=== PATIENT | female | born 1965 | race American Indian/Alaskan Native ===

== ENCOUNTER → 2016-06-27 | Day surgery (SDC) | payer BC ==
[~2016-06-27] MED LIST: ADDERALL PO; AMBIEN10 MG PO; AMITRIPTYLINE H50 MG PO; BENZONATATE PO; CYMBALTA PO; DICLOFENAC PO; DITROPAN-XL5 M1 PO; DITROPAN5 MG; FLEXERIL PO; FLEXERIL10 M1 PO; FLEXERIL10 MG PO; HYDROCODON-ACE1 EAC1 PO; IBUPROFEN100 MG PO; IBUPROFEN600 MG PO; LAMICTAL150 MG DOB; LAMOTRIGINE200 MG PO; LEXAPRO PO; LEXAPRO20 MG PO; MEDROL DOSEPAK4 MG PO; PHENERGAN25 MG PO; PREDNISONE; PREDNISONE PO; TOPAMAX200 MG; TOPAMAX200 MG PO; TYLENOL #3 PO; VIBRAMYCIN100 M1 PO; VICODIN 5/1 TAB 5/50 PO; VIMOVO DR 500-1 EACH PO; VOLTAREN75 MG PO; WELLBUTRIN SR150 MG PO; WELLBUTRIN XL PO
--- NOTE | ~2016-06-27 | OR ---
Unit #: [id number] #: [id number] Patient: HARI FARMER [id number] [address] [address] [id number] MR#: [id number] NAME: HARI FARMER. ROOM: Date of Procedure: 06/27/2016 Admission Date: 06/27/2016 Surgeon: Dilshad Livingston M.D. : 1965 Attending Physician: Dilshad Livingston M.D. Primary Care Physician: Generic Doctor Not In System OPERATIVE REPORT JOB NOTE: CC: [facility] PREOPERATIVE DIAGNOSES 1. Back pain. 2. Radiculopathy. 3. Spondylolisthesis. 4. Degenerative disk disease. POSTOPERATIVE DIAGNOSES 1. Back pain. 2. Radiculopathy. 3. Spondylolisthesis. 4. Degenerative disk disease. PROCEDURE PERFORMED Lumbar epidural steroid injection with fluoroscopic guidance for needle localization. INDICATIONS FOR PROCEDURE The patient is a 51-year-old female with back and intermittent left greater than right lower extremity pain due to grade 2 mobile spondylolisthesis at the L5-S1 level, also some broad-based bulging with nerve root compromise at L5 bilaterally, bulging degenerative change at L4-L5. The patient's seen in surgeon likely trial of conservative treatments, so plan is for trial of epidural steroid injections. DESCRIPTION OF PROCEDURE The patient was placed in a seated position. Standard monitors were applied. Sterile prep and drape then of lumbar area was performed. The skin then at the L5-S1 level was localized with 1% lidocaine. An 18-gauge Hust[employer] needle was then advanced via loss of resistance technique and fluoroscopic guidance in toward the epidural space. The patient did not complain of pain or paresthesia during needle advancement. After confirming proper positioning with fluoroscopy and radiographic contrast, 80 mg of Depo-Medrol and 3 mL of preservative-free normal saline were deposited. The patient tolerated the procedure otherwise well and was discharged to the recovery room in stable condition. Dictated by... Dilshad Livingston M.D. Unit #: [id number] #: [id number] Patient: HARI FARMER LHP/modl TD: 06/28/2016 01:06 JOB #: [id number] OPERATIVE REPORT Page 1 of 1 X Dilshad Livingston MD X PROCEDURE OPERATIVE NOTE
== END | disposition home or self-care (01) ==
LOC: CCSC 07:35
DX: M51.16 Intervertebral disc disorders with radiculopathy, lumbar region (principal); M43.17 Spondylolisthesis, lumbosacral region
CPT/HCPCS: J1040; J2250

== ENCOUNTER → 2016-07-11 | Day surgery (SDC) | payer BC ==
--- NOTE | ~2016-07-11 | OR ---
Unit #: [id number] #: [id number] Patient: HARI FARMER [id number] [address] [place], [place] [address] [id number] O MR#: [id number] NAME: HARI FARMER. ROOM: Date of Procedure: 07/11/2016 Admission Date: 07/11/2016 Surgeon: Dilshad Livingston M.D. : 1965 Attending Physician: Dilshad Livingston M.D. Primary Care Physician: Generic Doctor Not In System OPERATIVE REPORT JOB NOTE: CC: [facility] PREOPERATIVE DIAGNOSES 1. Spondylolisthesis. 2. Degenerative disk disease. 3. Back pain. 4. Radiculopathy. POSTOPERATIVE DIAGNOSES 1. Spondylolisthesis. 2. Degenerative disk disease. 3. Back pain. 4. Radiculopathy. PROCEDURE PERFORMED Lumbar sympathetic block with fluoroscopic guidance for needle localization. INDICATIONS FOR PROCEDURE The patient is a 51-year-old female with back and left greater than right lower extremity pain due to severe left greater than right neural foraminal stenosis and mobile spondylolisthesis. Plan is to conservative treatment and trying to avoid surgery. She had initial epidural steroid injection done 2 weeks ago resulted in significant improvement of her leg pain and mild improvement of her back pain. She failed to increase her exercise and physical therapy, and is very happy with overall improvement of her symptom complex so far. Based on her good partial response, pathology, symptomatology, and treatment options, plan is to repeat a second injection today. DESCRIPTION OF PROCEDURE The patient was placed in a seated position. Standard monitors were applied. Sterile prep and drape of the lumbar area was performed. The skin at the L5 level was localized with 1% lidocaine. An 18-gauge [employer] needle was then advanced via loss of resistance technique and fluoroscopic guidance in toward the epidural space. After confirming proper positioning with fluoroscopy and radiographic contrast, 80 mg of Depo-Medrol and 3 mL of preservative-free normal saline were deposited. The patient tolerated the procedure otherwise well and was discharged to the recovery room in stable condition. Unit #: [id number] #: [id number] Patient: HARI FARMER Dictated by... Dilshad Livingston M.D. [facility]/modl TD: 07/11/2016 22:49 JOB #: [id number] OPERATIVE REPORT Page 1 of 1 X Dilshad Livingston MD X PROCEDURE OPERATIVE NOTE
== END | disposition home or self-care (01) ==
LOC: CCSC 07:40
DX: M43.17 Spondylolisthesis, lumbosacral region (principal); M51.16 Intervertebral disc disorders with radiculopathy, lumbar region
CPT/HCPCS: J1040; J2250

== ENCOUNTER → 2016-07-25 | Day surgery (SDC) | payer BC ==
--- NOTE | ~2016-07-25 | OR ---
Unit #: [id number] #: [id number] Patient: HARI FARMER [id number] [address] [place], [place] [address] [id number] O MR#: [id number] NAME: HARI FARMER ROOM: Date of Procedure: 07/25/2016 Admission Date: 07/25/2016 Surgeon: Dilshad Livingston M.D. : 1965 Attending Physician: Dilshad Livingston M.D. Referring Physician: Dilshad Livingston M.D. OPERATIVE REPORT PREOPERATIVE DIAGNOSES Back pain, radiculopathy, spondylolisthesis, degenerative disk disease. POSTOPERATIVE DIAGNOSES Back pain, radiculopathy, spondylolisthesis, degenerative disk disease. PROCEDURE PERFORMED Lumbar epidural steroid injection with fluoroscopic guidance for needle localization. INDICATIONS FOR PROCEDURE The patient is a 51-year-old female with back and intermittent left greater than right lower extremity pain due to a mobile spondylolisthesis at the L5-S1 level. There was also severe neuroforaminal stenosis and degenerative disk disease. The patient was seen by a surgeon who wants her to try an exercise and lose weight prior to doing any surgery. There was some bulging at the L4-5 level, which is less clinically significant. The decision was made to give the patient a trial of epidural steroids in conjunction with her rehab at this point over the last month had been an additive significant improvement in her range of motion, decrease in her back pain, and near resolution of her lower extremity pains. Based on her good response, we will proceed with a final injection at this point. The patient will continue with her rehabilitation. She may well require repeat treatment in the future based on pathology and hopefully we will get her to the point where she improves and is more reasonable candidate for surgery. DESCRIPTION OF PROCEDURE The patient was placed in a seated position. Standard monitors were applied. Sterile prep and drape of the lumbar area was performed. The skin then at the L5-S1 level was localized with 1% lidocaine. An 18-gauge [employer] needle was then advanced via loss of resistance technique with fluoroscopic guidance in toward the epidural space. The patient did not complain of pain or paresthesia. After confirming proper positioning with fluoroscopy and radiographic contrast, 80 mg of Depo-Medrol and 3 mL of preservative-free normal saline were deposited. The patient tolerated the procedure otherwise well and was discharged to the recovery room in stable condition. Dictated by... Dilshda Livingston M.D. Unit #: [id number] #: [id number] Patient: HARI FARMER LHP/modl TD: 07/25/2016 09:03 JOB #: [id number] CC: Varun Dawkins M.D. OPERATIVE REPORT Page 1 of 1 X Dilshad Livingston MD X PROCEDURE OPERATIVE NOTE
== END | disposition home or self-care (01) ==
LOC: CCSC 07:40
DX: M43.17 Spondylolisthesis, lumbosacral region (principal); M51.16 Intervertebral disc disorders with radiculopathy, lumbar region
CPT/HCPCS: J1040; J2250